=== PATIENT | female | born 1985 | race Asian ===

== ENCOUNTER 2018-04-09 10:52 | Outpatient (CLI) | payer OTHER ==
[2018-04-09 13:25] LABS: PLATELET COUNT 176 K/uL (152-353)
[2018-04-09 13:27] LABS: POTASSIUM 4.7 mmol/L (3.6-5.2)
== END 2018-04-09 21:14 | disposition home or self-care (01) ==
LOC: RAD 10:52 → LAB 10:52 → RAD 21:14
PROVIDERS: Nurse Practitioner Family
DX: Z00.00 Encounter for general adult medical examination without abnormal findings (principal); R05 Cough; Z72.0 Tobacco use; R53.82 Chronic fatigue, unspecified; R53.81 Other malaise
CPT/HCPCS: 80053; 80061; 83036; 84436; 84443; 85027

== ENCOUNTER 2018-05-11 11:55 | Outpatient (CLI) | payer OTHER | END 2018-05-11 19:41 | disposition home or self-care (01) | LOC: RESP 11:55 | DX: R06.02 Shortness of breath (principal) ==

== ENCOUNTER 2018-05-24 13:48 | Outpatient (CLI) | payer OTHER | END 2018-05-24 20:56 | disposition home or self-care (01) | LOC: LABW 13:48 | DX: R05 Cough (principal) | CPT/HCPCS: 36415; 82785; 86003 ==

== ENCOUNTER 2018-06-04 19:39 | Emergency (ER) | payer OTHER ==
[~2018-06-04] VITALS: Ht 157.5 cm; Wt 56.0 kg
[2018-06-04 20:24] LABS: PLATELET COUNT 152 K/uL (152-353)
[2018-06-04 20:36] LABS: POTASSIUM 4.2 mmol/L (3.6-5.2)
[2018-06-04 21:41] VITALS: BP 112/88; TEMP 98.3
== END 2018-06-04 21:42 | disposition home or self-care (01) ==
LOC: ED 19:39
DX: M47.896 Other spondylosis, lumbar region (principal)
CPT/HCPCS: 36415; 80053; 80307; 81000; 81025; 85027; 87081; 87880; 99283

== ENCOUNTER 2018-06-13 16:31 | Emergency (ER) | payer OTHER ==
[~2018-06-13] VITALS: Ht 157.5 cm; Wt 55.8 kg
[2018-06-13 17:15] LABS: PLATELET COUNT 178 K/uL (152-353)
[2018-06-13 17:37] LABS: POTASSIUM 3.6 mmol/L (3.6-5.2)
[2018-06-14 03:45] VITALS: BP 142/106; TEMP 98.1
== END 2018-06-14 03:45 | disposition other institution (70) ==
LOC: ED 16:31
PROVIDERS: Emergency Medicine
DX: R44.2 Other hallucinations (principal); R00.0 Tachycardia, unspecified
CPT/HCPCS: 36415; 80053; 80307; 80320; 80329; 81025; 85027; 93005; 99285

== ENCOUNTER 2018-07-27 09:40 | Emergency (ER) | payer OTHER ==
[~2018-07-27] VITALS: Ht 157.5 cm; Wt 58.1 kg
[2018-07-27 09:45] VITALS: TEMP 98.8
[2018-07-27 11:17] VITALS: BP 135/96
== END 2018-07-27 11:17 | disposition home or self-care (01) ==
LOC: ED 09:40
DX: S90.122A Contusion of left lesser toe(s) without damage to nail, initial encounter (principal); L03.032 Cellulitis of left toe; W22.8XXA Striking against or struck by other objects, initial encounter; Y92.89 Other specified places as the place of occurrence of the external cause
CPT/HCPCS: 99282

== ENCOUNTER 2019-04-13 20:16 | Emergency (ER) | payer OTHER ==
[~2019-04-13] VITALS: Ht 157.5 cm; Wt 60.8 kg
[2019-04-13 20:31] VITALS: TEMP 98
[2019-04-13 20:56] LABS: PLATELET COUNT 195 K/uL (152-353)
[2019-04-13 21:09] LABS: POTASSIUM 4.1 mmol/L (3.6-5.2)
[2019-04-13 21:47] VITALS: BP 123/87
== END 2019-04-13 21:47 | disposition home or self-care (01) ==
LOC: ED 20:16
PROVIDERS: Emergency Medicine
DX: I10 Essential (primary) hypertension (principal); F17.210 Nicotine dependence, cigarettes, uncomplicated
CPT/HCPCS: 36415; 80053; 85027; 93005; 99283

== ENCOUNTER 2019-04-25 17:22 | Emergency (ER) | payer OTHER ==
[~2019-04-25] VITALS: Ht 157.5 cm; Wt 59.0 kg
[2019-04-25] MEDS ORDERED: TOPAMAX50 MG PO (17:45)
[2019-04-25] MEDS ORDERED: CLONIDINE HYDR0.2 MG PO (17:46)
[2019-04-25] MEDS ORDERED: TRAZODONE HYDRO50 MG PO (17:46)
[2019-04-25] MEDS ORDERED: BUSPIRONE10 MG PO (17:46)
[2019-04-25 18:10] LABS: PLATELET COUNT 220 K/uL (152-353)
[2019-04-25 18:19] LABS: POTASSIUM 4.1 mmol/L (3.6-5.2); SODIUM 139 mmol/L (136-145)
[2019-04-25 18:41] VITALS: BP 119/67; TEMP 99
== END 2019-04-25 18:46 | disposition home or self-care (01) ==
LOC: ED 17:22
PROVIDERS: Student in an Organized Health Care Education/Training Program
DX: R42 Dizziness and giddiness (principal); R51 Headache; F19.10 Other psychoactive substance abuse, uncomplicated; R00.0 Tachycardia, unspecified; F17.210 Nicotine dependence, cigarettes, uncomplicated
CPT/HCPCS: 80048; 80307; 81025; 83880; 84484; 85027; 93005; 96360; 96375; 99284; J2060

== ENCOUNTER 2019-05-26 00:40 | Emergency (ER) | payer OTHER ==
[~2019-05-26] VITALS: Ht 157.5 cm; Wt 63.5 kg
[~2019-05-26 00:40] MED LIST: BUSPIRONE10 MG PO; CLONIDINE HYDR0.2 MG PO; TOPAMAX50 MG PO; TRAZODONE HYDRO50 MG PO
[2019-05-26 03:07] VITALS: BP 149/90; TEMP 98.1
== END 2019-05-26 03:07 | disposition home or self-care (01) ==
LOC: ED 00:40
DX: I10 Essential (primary) hypertension (principal); F17.210 Nicotine dependence, cigarettes, uncomplicated
CPT/HCPCS: 93005; 99283

== ENCOUNTER 2019-08-23 16:01 | Emergency (ER) | payer OTHER ==
[~2019-08-23] VITALS: Ht 157.5 cm; Wt 68.0 kg
[2019-08-23 16:19] VITALS: BP 152/84; TEMP 98.1
== END 2019-08-23 17:30 | disposition home or self-care (01) ==
LOC: ED 16:01
DX: J06.9 Acute upper respiratory infection, unspecified (principal); R05 Cough; F17.210 Nicotine dependence, cigarettes, uncomplicated
CPT/HCPCS: 87502; 87651; 99283

== ENCOUNTER 2019-11-14 15:14 | Emergency (ER) | payer OTHER ==
[~2019-11-14] VITALS: Ht 157.5 cm; Wt 68.0 kg
[2019-11-14 15:53] LABS: PLATELET COUNT 177 K/uL (152-353)
[2019-11-14 16:02] LABS: POTASSIUM 4.2 mmol/L (3.6-5.2)
[2019-11-14 16:50] VITALS: BP 121/70; TEMP 99.1
== END 2019-11-14 16:50 | disposition home or self-care (01) ==
LOC: ED 15:14
PROVIDERS: Emergency Medicine
DX: J02.0 Streptococcal pharyngitis (principal); F17.210 Nicotine dependence, cigarettes, uncomplicated
CPT/HCPCS: 80053; 80307; 81000; 81025; 85027; 87651; 99283

== ENCOUNTER 2019-12-20 11:36 | Emergency (ER) | payer OTHER ==
[~2019-12-20] VITALS: Ht 157.5 cm; Wt 68.0 kg
[2019-12-20 12:43] LABS: PLATELET COUNT 186 K/uL (152-353)
[2019-12-20 12:47] LABS: POTASSIUM 4.1 mmol/L (3.6-5.2)
[2019-12-20 13:38] VITALS: BP 150/82; TEMP 98
== END 2019-12-20 13:39 | disposition home or self-care (01) ==
LOC: ED 11:36
PROVIDERS: Family Medicine
DX: J32.9 Chronic sinusitis, unspecified (principal); R51 Headache; E87.1 Hypo-osmolality and hyponatremia; F17.210 Nicotine dependence, cigarettes, uncomplicated
CPT/HCPCS: 80053; 81000; 85027; 87502; 87651; 99283

== ENCOUNTER 2020-05-13 17:30 | Emergency (ER) | payer OTHER ==
[~2020-05-13] VITALS: Ht 157.5 cm; Wt 61.7 kg
[2020-05-13 18:09] LABS: PLATELET COUNT 173 K/uL (152-353)
[2020-05-13 18:22] LABS: POTASSIUM 4.3 mmol/L (3.6-5.2); SODIUM 138 mmol/L (136-145)
[2020-05-13 19:09] VITALS: BP 136/92; TEMP 98.7
== END 2020-05-13 19:11 | disposition home or self-care (01) ==
LOC: ED 17:30
PROVIDERS: Emergency Medicine
DX: R07.89 Other chest pain (principal); Z03.818 Encounter for observation for suspected exposure to other biological agents ruled out
CPT/HCPCS: 80053; 80307; 82550; 82553; 84484; 85027; 85379; 87635; 93005; 96372; 99284; J2930; U0003

== ENCOUNTER 2020-10-04 13:55 | Emergency (ER) | payer OTHER ==
[~2020-10-04] VITALS: Ht 157.5 cm; Wt 59.9 kg
[2020-10-04 14:00] VITALS: TEMP 98.6
[2020-10-04 15:19] LABS: PLATELET COUNT 183 K/uL (152-353)
[2020-10-04 16:27] VITALS: BP 136/73
== END 2020-10-04 16:27 | disposition home or self-care (01) ==
LOC: ED 13:55
PROVIDERS: Hospitalist
DX: J02.0 Streptococcal pharyngitis (principal); J45.909 Unspecified asthma, uncomplicated; Z20.828 Contact with and (suspected) exposure to other viral communicable diseases; F17.210 Nicotine dependence, cigarettes, uncomplicated
CPT/HCPCS: 80048; 85027; 87502; 87635; 87651; 96372; 99283; J1100; U0003

== ENCOUNTER 2020-10-06 22:04 | Emergency (ER) | payer OTHER | END 2020-10-06 23:32 | disposition home or self-care (01) | LOC: ED 22:04 | DX: J20.9 Acute bronchitis, unspecified (principal); F17.210 Nicotine dependence, cigarettes, uncomplicated | CPT/HCPCS: 99282 ==

== ENCOUNTER 2020-11-09 03:41 | Emergency (ER) | payer OTHER ==
[~2020-11-09] VITALS: Ht 157.5 cm; Wt 56.2 kg
[2020-11-09 04:05] VITALS: TEMP 98.5
[2020-11-09 04:56] LABS: PLATELET COUNT 141 K/uL (152-353)
[2020-11-09 09:25] VITALS: BP 135/91
== END 2020-11-09 09:25 | disposition home or self-care (01) ==
LOC: ED 03:41
PROVIDERS: Family Medicine
DX: N93.8 Other specified abnormal uterine and vaginal bleeding (principal); R10.84 Generalized abdominal pain
CPT/HCPCS: 80053; 80307; 81000; 84702; 85027; 96372; 99283; J1885

== ENCOUNTER 2021-01-20 13:45 | Emergency (ER) | payer OTHER ==
[~2021-01-20] VITALS: Ht 157.5 cm; Wt 56.2 kg
[2021-01-20 15:17] VITALS: BP 92/59; TEMP 97.6
== END 2021-01-20 15:18 | disposition home or self-care (01) ==
LOC: ED 13:45
DX: J02.0 Streptococcal pharyngitis (principal); F17.210 Nicotine dependence, cigarettes, uncomplicated
CPT/HCPCS: 87502; 87651; 96372; 99283; J1885